=== PATIENT | male | born 1980 | race Caucasian/White ===

== ENCOUNTER 2023-12-01 14:53 | Emergency (ER) | payer OTHER ==
[2023-12-01] MEDS ORDERED: Sodium Chloride 0.9% 10 ML Syringe FLUSH PRN (15:17)
[2023-12-01 16:09] LABS: BASOPHILS ABSOLUTE AUTO 0.1 K/mm3 (0.0-0.2); BASOPHILS PERCENT AUTO 0.6 % (0.0-1.0); EOSINOPHILS ABSOLUTE AUTO 0.1 K/mm3 (0.0-0.4); EOSINOPHILS PERCENT AUTO 1.7 % (0.0-6.0); HEMATOCRIT 48.5 % (42.0-52.0); HEMOGLOBIN 16.5 gm/dl (14.0-18.0); IMMATURE GRAN ABSOLUTE AUTO 0.04 K/mm3 (0.00-0.05); IMMATURE GRAN PERCENT AUTO 0.5 % (0.0-0.4); LYMPHOCYTES ABSOLUTE AUTO 2.1 K/mm3 (1.0-4.8); LYMPHOCYTES PERCENT AUTO 26.2 % (24.0-44.0); MEAN CORPUSCULAR HEMOGLOBIN 28.5 pg (28.0-32.0); MEAN CORPUSCULAR VOLUME 83.9 fl (83.0-99.0); MEAN PLATELET VOLUME 10.7 fl (9.4-12.4); MONOCYTES ABSOLUTE AUTO 0.7 K/mm3 (0.0-0.8); MONOCYTES PERCENT AUTO 8.3 % (0.0-8.0); NEUTROPHILS ABSOLUTE AUTO 4.9 K/mm3 (1.8-7.7); NEUTROPHILS PERCENT AUTO 62.7 % (41.0-71.0); PLATELET COUNT,PLT 221 K/mm3 (150-400); RED BLOOD CELL COUNT 5.78 M/mm3 (4.52-5.90); WHITE BLOOD CELL COUNT,WBC 7.82 K/mm3 (3.9-11.3)
[2023-12-01 16:18] LABS: A/G RATIO 0.8 (1-2); ALBUMIN 3.6 g/dl (3.4-5.0); ANION GAP 13.9 (5-15); BILIRUBIN TOTAL 0.3 mg/dL (0.2-1.0); BUN/CREATININE RATIO 10.9 (14-18); CALCIUM 8.4 mg/dL (8.5-10.1); CREATININE 1.1 mg/dL (0.7-1.3); EST CRCL DRUG DOSING (CG) 106.31 mL/min; PROTEIN TOTAL,TP 7.9 g/dl (6.4-8.2)
[2023-12-01] MEDS ORDERED: NIFEdipine 30 MG Tab.ER PO ONE ×2 (16:18→18:05)
[2023-12-01] MEDS ORDERED: NIFEdipine 10 MG Cap PO ONE ×2 (16:18→18:05)
[2023-12-01 16:20] LABS: POTASSIUM,K 3.9 mEq/L (3.5-5.1)
== END 2023-12-01 19:00 | disposition home or self-care (01) ==
LOC: JD.ED 14:53
DX: I10 Essential (primary) hypertension (principal); E66.9 Obesity, unspecified; Z88.5 Allergy status to narcotic agent; Z68.41 Body mass index [BMI] 40.0-44.9, adult
CPT/HCPCS: 36415; 71046; 80053; 84484; 85025; 93005; 99284; A9270; J3490; 93010

== ENCOUNTER 2025-05-27 06:00 | Day surgery (SDC) | payer OTHER ==
[~2025-05-27 06:00] MED LIST: Sodium Chloride 0.9% 10 ML Syringe FLUSH PRN; Sodium Chloride 0.9% 10 ML Syringe FLUSH SCH
[2025-05-27] MEDS: Lactated Ringers 1,000 ML IV SCH (06:10)
[2025-05-27] MEDS ORDERED: propofoL 500 MG/50 ML 50 ML ONE ×2 (06:18→07:22)
[2025-05-27] MEDS ORDERED: Midazolam 1 MG/ML 2 ML SDV ONE (06:18)
[2025-05-27] MEDS ORDERED: Ropivacaine 0.5% 5 MG/ML 30 ML SDV ONE (06:18)
[2025-05-27] MEDS ORDERED: fentaNYL 100 MCG/2 ML SDV ONE (06:18)
[2025-05-27] MEDS ORDERED: fentaNYL 100 MCG/2 ML SDV IVPUSH PRN (06:37)
[2025-05-27] MEDS ORDERED: Ondansetron 4 MG/2 ML SDV IVPUSH PRN (06:37)
== END 2025-05-27 09:26 | disposition home or self-care (01) ==
LOC: JD.SDS 06:00
PROVIDERS: ATTEND Orthopaedic Surgery
DX: S46.211A Strain of muscle, fascia and tendon of other parts of biceps, right arm, initial encounter (principal); I10 Essential (primary) hypertension; X58.XXXA Exposure to other specified factors, initial encounter
CPT/HCPCS: 24999; 64415; 76000; J0690; J2250; J2704; J2795; J3010; J7120; 01710; 64450